=== PATIENT | female | born 1990 | race Two or more races ===

== ENCOUNTER → 2020-07-05 | Outpatient (CLI) | payer MEDICAID ==
[~2020-07-05] VITALS: Ht 147.3 cm; Wt 68.0 kg
[2020-07-05 13:20] VITALS: BP 130/73
--- NOTE | 2020-07-06 11:45 | Consultation ---
DATE OF CONSULTATION: 07/05/2020 CHIEF COMPLAINT: Referral for abdominal pain. HISTORY OF PRESENT ILLNESS: The patient is a 29-year-old female without any significant past medical history referred to us complaining of abdominal pain mostly in the lower quadrant associated with bloating. No constipation. No blood in the stool. No weight loss. It has been going on for about a year. She said after she got IUD placement two years ago, she started having the symptoms but she has been seen by the [facility] consultant and she was told that is not from that. She also had abdominal ultrasound, we are not sure, we do not have a copy but she states she might have gallstones. PAST MEDICAL HISTORY: History of questionable gallstones. PAST SURGICAL HISTORY: 1. . 2. IUD placement. MEDICATIONS: Currently not on any medications. ALLERGIES: No known drug allergies. FAMILY HISTORY: Noncontributory. SOCIAL HISTORY: The patient denies any tobacco, alcohol, or drug abuse. REVIEW OF SYSTEMS: As dictated above. PHYSICAL EXAMINATION: VITAL SIGNS: Temperature 97.2, blood pressure 130/73, pulse 72, respirations 20. Weight is 150, height is 4 feet 10 inches. HEENT: Normocephalic and atraumatic. Sclerae anicteric. NECK: Supple. No evidence of obvious lymphadenopathy. CARDIOVASCULAR: Regular rate and rhythm. Plus S1-S2. LUNGS: Clear to auscultation bilaterally. ABDOMEN: Positive bowel sounds. Soft, nontender. No rebound. No guarding. No peritoneal sign. EXTREMITIES: No cyanosis, no clubbing, no edema. ASSESSMENT: The patient is a 29-year-old female with abdominal pain mostly in bilateral lower quadrants associated with bloating suspicious for SIBO, also complained of some GERD symptoms. PLAN: Start the patient on omeprazole 40 mg p.o. daily, also align one tablet p.o. daily. Come back if the above symptoms are not improved. Gregorio Farias M.D. DR: Jodie JOB#: [id number] CC:
== END | disposition home or self-care (01) ==
LOC: PAN 12:30
DX: R10.30 Lower abdominal pain, unspecified (principal); Z97.5 Presence of (intrauterine) contraceptive device; R14.0 Abdominal distension (gaseous); Z79.899 Other long term (current) drug therapy